=== PATIENT | male | born 1970 | race Caucasian/White ===

== ENCOUNTER 2024-10-22 20:34 | Inpatient (IN) | payer OTHER ==
[2024-10-22 21:05] VITALS: BMI 28.1
[2024-10-22] MEDS: ACETAMINOPHEN 1000 MG/100 ML BAG IVPB ONE (22:13)
[2024-10-22] MEDS ORDERED: METOCLOPRAMIDE HCL INJECTION 10 MG/2 ML VIAL ONE (22:13)
[2024-10-22] MEDS ORDERED: ACETAMINOPHEN INJECTION 100 ML ONE (22:13)
[2024-10-22] MEDS: METOCLOPRAMIDE HCL INJECTION 10 MG/2 ML VIAL IVPUSH ONE (22:14)
[2024-10-22 22:16] LABS: ABSOLUTE IMMATURE GRANULOCYTES 0.03 x10^3/uL (0.0-0.031); BASOPHILS # 0.07 x10^3/uL (0.01-0.08); EOSINOPHIL % 5.4 % (0.8-7.0); EOSINOPHILS # 0.48 x10^3/uL (0.04-0.54); HEMATOCRIT 45.3 % (40.1-51.0); HEMOGLOBIN 15.8 g/dL (13.7-17.5); MCHC 34.9 g/dl (32.3-36.5); MEAN CELL VOLUME 92.6 fl (79.0-92.2); MEAN PLT VOLUME 9.3 fl (9.4-12.4); MONOCYTE # 0.92 x10^3/uL (0.30-0.82); MONOCYTE % 10.3 % (5.3-12.2); PLATELET COUNT # 184 x10^3/uL (163-337); RDW 12.3 % (12.2-16.1)
[2024-10-22 22:38] LABS: CHLORIDE 103 mmol/L (98-107); SODIUM 136 mmol/L (136-145)
[2024-10-22 22:40] LABS: CALCIUM 9.4 mg/dL (8.5-10.1); CO2 30 mmol/L (21-32)
[2024-10-22 22:41] LABS: ALBUMIN 3.8 g/dl (3.4-5.0); BLOOD UREA NITROGEN 24.6 mg/dL (7-18); GLUCOSE,RANDOM 92 mg/dL (74-106)
[2024-10-22 22:44] LABS: CREATININE 1.4 mg/dL (0.55-1.3); SGOT/AST 65 U/L (15-37); SGPT/ALT 64 U/L (13-61)
[2024-10-22 22:45] LABS: BILIRUBIN,TOTAL 0.4 mg/dL (0.2-1); TOT PROT 7.7 g/dl (6.4-8.2)
[2024-10-22 22:47] LABS: ALK PHOS 59 U/L (45-117)
[2024-10-22 22:49] LABS: ANION GAP 2 mmol/L (4-13); POTASSIUM 6.5 mmol/L (3.5-5.1)
[2024-10-22 23:06] LABS: ERYTHROCYTE SEDIMENTATION RATE 8 mm/hr (0-20)
[2024-10-23] MEDS ORDERED: ATORVASTATIN CA 80 MG TABLET (FP) ONE (00:52)
[2024-10-23] MEDS ORDERED: ASPIRIN 81 MG CHEWABLE TABLETS ONE ×2 (00:53→09:09)
[2024-10-23] MEDS ORDERED: CLOPIDOGREL BISULFATE 75 MG TABLET (FP) ONE ×2 (00:53)
[2024-10-23] MEDS: ASPIRIN 81 MG CHEWABLE TABLETS PO ONE (00:55)
[2024-10-23] MEDS: CLOPIDOGREL BISULFATE 75 MG TABLET (FP) PO ONE (00:56)
[2024-10-23] MEDS: ATORVASTATIN CA 80 MG TABLET (FP) PO ONE (00:56)
[2024-10-23 01:45] LABS: INR 1.09 (0.83-1.09)
[2024-10-23 02:01] LABS: POTASSIUM 4.1 mmol/L (3.5-5.1)
[2024-10-23 02:02] LABS: CALCIUM 8.6 mg/dL (8.5-10.1)
[2024-10-23 02:03] LABS: BLOOD UREA NITROGEN 20.9 mg/dL (7-18)
[2024-10-23 02:06] LABS: CREATININE 1.2 mg/dL (0.55-1.3)
[2024-10-23 07:05] LABS: POTASSIUM 4.2 mmol/L (3.5-5.1)
[2024-10-23 07:09] LABS: ALBUMIN 3.5 g/dl (3.4-5.0); CALCIUM 8.7 mg/dL (8.5-10.1); MAGNESIUM 2.2 mg/dL (1.8-2.4)
[2024-10-23 07:10] LABS: BLOOD UREA NITROGEN 18.7 mg/dL (7-18)
[2024-10-23 07:12] LABS: CREATININE 1.1 mg/dL (0.55-1.3)
[2024-10-23 07:13] LABS: PHOSPHOROUS 4.1 mg/dL (2.5-4.9); TOT PROT 6.5 g/dl (6.4-8.2)
[2024-10-23 07:15] LABS: BILIRUBIN,TOTAL 0.6 mg/dL (0.2-1)
[2024-10-23 07:24] LABS: ABSOLUTE IMMATURE GRANULOCYTES 0.02 x10^3/uL (0.0-0.031); BASOPHILS # 0.07 x10^3/uL (0.01-0.08); EOSINOPHIL % 7.3 % (0.8-7.0); EOSINOPHILS # 0.54 x10^3/uL (0.04-0.54); HEMATOCRIT 43.5 % (40.1-51.0); HEMOGLOBIN 14.9 g/dL (13.7-17.5); MCHC 34.3 g/dl (32.3-36.5); MEAN CELL VOLUME 92.4 fl (79.0-92.2); MEAN PLT VOLUME 9.4 fl (9.4-12.4); MONOCYTE # 0.99 x10^3/uL (0.30-0.82); MONOCYTE % 13.4 % (5.3-12.2); PLATELET COUNT # 169 x10^3/uL (163-337); RDW 12.1 % (12.2-16.1)
[2024-10-23] MEDS: ENOXAPARIN NA (PORCINE) 40 MG/0.4 ML DISP.SYRIN SQ SCH (09:20)
[2024-10-23] MEDS: ASPIRIN 81 MG CHEWABLE TABLETS PO SCH (09:20)
[2024-10-23] MEDS: CLOPIDOGREL BISULFATE 75 MG TABLET (FP) PO SCH (09:20)
[2024-10-23] MEDS: BICTEGRAV/EMTRICIT/TENOFOV (BIKTARVY) 50-200-25 MG TABLET PO SCH (11:28)
[2024-10-23 16:59] LABS: HIV INTERPRETATION PRESUMPTIVE POSITIVE (NEGATIVE)
[2024-10-24] MEDS: ATORVASTATIN CA 80 MG TABLET (FP) PO SCH (00:50)
[2024-10-24] MEDS ORDERED: ATORVASTATIN CA 80 MG TABLET (FP) PO SCH (12:16)
[2024-10-24 14:40] VITALS: RESP 18
[2024-10-24] MEDS: ROSUVASTATIN CA 20 MG TABLET PO SCH (21:14)
[2024-10-24 22:11] VITALS: BP 101/67; PULSE 62; TEMP 97.3
[2024-10-25] MEDS ORDERED: ASPIRIN COATED 81 MG TABLET.EC PO SCH (10:00)
== END 2024-10-24 23:30 | disposition home or self-care (01) | DRG 45 ==
LOC: JER 20:34 → JERBED 10-23 00:22 → OBSVTOIN 10-23 02:45 → J4W 10-23 23:55
PROVIDERS: ADMIT Internal Medicine; ATTEND Internal Medicine
DX: I63.532 Cerebral infarction due to unspecified occlusion or stenosis of left posterior cerebral artery (principal); Z21 Asymptomatic human immunodeficiency virus [HIV] infection status; E78.5 Hyperlipidemia, unspecified; E87.5 Hyperkalemia; R00.1 Bradycardia, unspecified
CPT/HCPCS: 36415; 70450-TC; 70496-TC; 70498-TC; 70551-TC; 80048; 80053; 80061; 83036; 83735; 84100; 84478; 85025; 85610; 85651; 86140; 86359; 86360; 86850; 86900; 86901; 87389; 93005; 93010; 97116-GP; 97161-GP; 99285-25; G0378; J0131; Q9967